=== PATIENT | male | born 1995 | race Caucasian/White ===

== ENCOUNTER 2019-04-17 15:11 | Emergency (ER) | payer BC, SELFPAY ==
[2019-04-17 15:17] VITALS: BP 140/68; PULSE 71; RESP 16; TEMP 36.6; O2SAT 99
--- NOTE | 2019-04-17 15:40 | ED.GENADUL_ITS ---
Discharge Plan Disposition Patient Disposition: HOME Condition: Good Discharge Details Chief Complaint: GenMedical Clinical Impression: Discoloration of skin Primary Care Provider: Denise Diop ED Provider: Ira Smith Home Meds and New Rx's Prescriptions: Continued epinephrine [EpiPen 2-Luis Felipe] 0.3 MG/0.3 ML auto-injector 0.3 mg IM ONCE Qty: 1 RF: 0 Discharge Instructions Additional Instructions: Wash your hands with alcohol, stain is coming off easily with alcohol swab. Wash your jeans to keep this from happening once again. If the sensation of tingling comes back or you develop other new/worsening symptoms please return to the emergency department. Otherwise, please follow-up with primary care as needed. Referrals: Denise Diop, HANDLE LATHE OPERATOR [Primary Care Provider] - Discharge Data Discharge Date/Time-TO BE ENTERED AT DEPARTURE: 04/17/19 15:45 Medical Decision Making Patient is a 24-year-old male, accompanied by significant other, with chief complaint of blue skin and tingling in his hands. On exam, patient has a stain on his hands which was easily washed off with alcohol. There is a patient relates that this did not actually cyanosis, the tingling sensation resolved. Exam is benign. He was given return precautions. All his questions and concerns were addressed. Stain seems to be from new jeans the patient is wearing. HPI General Mode of arrival: ambulatory . Date/Time Provider Initiated Documentation: 04/17/19 15:26 . Limitations to Documentation: no limitations . Information obtained by: patient and RN notes reviewed . HPI Narrative: Patient is a pleasant 24-year-old male, accompanied by significant other, with chief complaint of blue palms that began a few hours ago. Reports that these symptoms do seem to wax and wane. States that when he first noted his hands were blue, he began having some tingling in his hands. Related Data Home Medications Medication Instructions Recorded Confirmed epinephrine [EpiPen 2-Luis Felipe] 0.3 mg IM ONCE #1 pack 01/21/15 04/17/19 Allergies Allergy/AdvReac Type Severity Reaction Status Date / Time venom-honey bee Allergy Unverified 04/17/19 15:21 General Stated Complaint: GenMedical JORDY: 4 Review of Systems Constitutional Constitutional: Reports as per HPI, Denies chills and Denies fever(s) Musculoskeletal Musculoskeletal: Reports as per HPI, Denies numbness and Reports tingling Integumentary/Breasts Skin/Breast: Reports as per HPI Neurologic Neurologic: Reports as per HPI, Denies numbness, Denies sensory deficit, Reports tingling and Denies paresthesias [facility] Medical History Anxiety Depressed (Chronic) Sting of hornets, wasps, and bees causing poisoning and toxic reactions Family History (Updated 12/24/18 @ 13:56 by Chris Junior) Mother Hypertension Father No problems noted. Paternal Grandmother Breast cancer Hypertension Maternal Aunt Breast cancer Paternal Grandfather No problems noted. Maternal Grandmother Cancer Maternal Grandfather No problems noted. Sister No problems noted. Sister No problems noted. Social History Smoking/Tobacco Use Status: Never Second Hand Exposure: Yes Alcohol Intake: current Alcohol Intake frequency: a few times a month Alcohol type: beer Drug use: Never Substance use type: does not use Caregiver/Support person: No Household members: family Housing: house Communication Needs: None Do you need help understanding health information?: Rarely Pets and animals: Yes Pets and animals: cat(s), dog(s) and horse(s) Sexually active: Yes Do you think of yourself as: straight/heterosexual Current gender identity: male What is your relationship status?: never How often do you talk on the phone with friends or family?: never How often do you get together with friends or relatives?: once per week How often do you attend yazidi or buddhist services?: decline to answer Do you belong to any clubs or organized social groups?: no Panel score (0-1 are the most socially isolated patients): 0 What type of physical activity do you participate in: walking, weight lifting and running Duration: > 90 minutes/day Frequency: 5-6 times per week Yamileth/Spiritism: None Special yamileth needs: No Seatbelt use: always Helmet use: Yes Helmet use: always 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 Additional Social history: unable to assess privately Exam Const General: cooperative, healthy appearing, comfortable, no acute distress and well developed Nutritional Appearance: average body habitus and well nourished Orientation: alert and awake Resp Effort & Inspection: normal respiratory effort, able to speak in complete sentences and no respiratory distress Cardio Rate: regular rate Rhythm: regular rhythm Skin General skin exam: other (palms are both blue, not cyanotic but dorian blue, washes off with alcohol swa) Neuro General: alert and awake Cognition: normal cognition Speech: speech normal Gait: normal gait Sensory Exam: no sensory deficits noted Extrem General: abnormal to inspection (discoloration as above), full ROM, normal capillary refill and no joint enlargement Right upper extremity: normal to inspection, full ROM, normal capillary refill and no joint enlargement; no cyanosis Left upper extremity: normal to inspection, full ROM, normal capillary refill and no joint enlargement; no cyanosis Psych Appearance: grossly normal and well kempt Mental Status: mental status grossly normal Speech and Movement: speech and movement normal Course Vital Signs Vital signs: Vital Signs Temperature 36.6 C 04/17/19 15:17 Pulse 71 04/17/19 15:17 Respiratory Rate 16 04/17/19 15:17 Blood Pressure 140/68 04/17/19 15:17 Pulse Oximetry 99 04/17/19 15:17 Temperature 36.6 C 04/17/19 15:17 Temperature Source Skin 04/17/19 15:17 Pulse 71 04/17/19 15:17 Respiratory Rate 16 04/17/19 15:17 Respiratory Effort Non-Labored 04/17/19 15:28 Respiratory Depth Normal 04/17/19 15:28 Respiratory Pattern Normal 04/17/19 15:28 Blood Pressure 140/68 04/17/19 15:17 Blood Pressure Position Sitting 04/17/19 15:17 Pulse Oximetry 99 04/17/19 15:17 Oxygen Delivery Method Room Air 04/17/19 15:17 Oxygen Flow Rate 0 04/17/19 15:17 Pain Level 0 04/17/19 15:17
== END 2019-04-17 15:45 | disposition home or self-care (01) ==
LOC: ER 16:01
PROVIDERS: Emergency Provider Physician Assistant; PCP Nurse Practitioner
DX: R23.8 Other skin changes (principal)
CPT/HCPCS: 99281

== ENCOUNTER 2020-03-01 12:22 | Outpatient (REF) | payer OTHER, SELFPAY ==
[2020-03-01 14:24] LABS: Calculated LDL 152 mg/dL (<100); Cholesterol 207 mg/dL (<200); HDL Cholesterol 47 mg/dL (40-60); Triglyceride 43 mg/dL (<150)
== END 2020-03-01 12:42 ==
LOC: LBN 12:22
PROVIDERS: PCP Nurse Practitioner; Visit Provider Family Medicine
DX: Z00.00 Encounter for general adult medical examination without abnormal findings (principal)
CPT/HCPCS: 80061

== ENCOUNTER 2021-11-16 14:40 | Emergency (ER) | payer OTHER, SELFPAY ==
[2021-11-16 14:44] VITALS: BP 138/81; PULSE 86; RESP 17; TEMP 37.4; O2SAT 96
--- NOTE | 2021-11-16 14:45 | DI.RAD_ITS ---
Exam(s) XR KNEE LT 4V+ EXAM: XR KNEE LT 4V+ CLINICAL HISTORY: twist pain. TECHNIQUE: 2D digital imaging was performed. Three views. COMPARISON: No exams were available for comparison FINDINGS: BONES: No acute fracture is present. No bony destructive lesion is seen. Tiny enthesophyte at the qu adriceps insertion. JOINTS: The knee is normally aligned. No joint effusion is seen. SOFT TISSUE: Normal. IMPRESSION: Remarkable radiographs of the left knee. DATA REPOSITORY: RADIATION DOSE DELIVERED:
--- NOTE | 2021-11-16 15:08 | ED.GENADUL_ITS ---
Discharge Plan Disposition Patient Disposition: HOME Condition: Stable Discharge Details Clinical Impression: Injury of knee, left Primary Care Provider: Eliana Gonzalez ED Provider: Frank Coleman Home Meds and New Rx's Prescriptions: Continued epinephrine [EpiPen 2-Luis Felipe] 0.3 mg/0.3 mL auto-injector 0.3 mg IM ONCE Qty: 1 2RF Rx Instructions: Use as directed for bee allergy Discharge Instructions Instructions: Swollen Knee Joint (ED) Additional Instructions: X-ray of your knee is unremarkable. Lvhm-ati-noeweke Tylenol and/or Motrin as directed for discomfort. Rest, elevate, cool compresses every 2 hours for 20 minutes. Lypi-ktf-qrgnmut neoprene sleeve as tolerated. Please watch for new or worsening symptoms and return to the ER for any concerns. A work note is provided for tomorrow. If symptoms not improving over the next few days with conservative measures I recommend follow-up with either your Workmen's Comp. provider or PCP for reevaluation and potential outpatient MRI. Stand Alone Forms: Work Release Discharge Data Discharge Date/Time-TO BE ENTERED AT DEPARTURE: 11/16/21 15:37 Medical Decision Making This is a 26-year-old male who was at work this morning running after a suspect, stepped awkwardly, did not fall. Reports mild pain at the time of the injury but throughout the day he has become slightly more painful and overall stiff. He denies any other injury, numbness, tingling, weakness. Neuro, vascular, tendon intact. Knee is stable. Plan is to obtain x-ray to rule out any bony involvement and or effusion. X-ray unremarkable Discussed x-ray findings with patient. Plan is to provide work note for tomorrow. Patient plans to use an rojz-wft-tlumuub neoprene sleeve. We discussed conservative measures with elevation, cool compresses, gentle stretching, ekab-swb-ffotkox medication such as Tylenol and/or Motrin. Standard discharge and return precautions were provided. Patient understands, is agreeable to this plan, and has no additional questions or concerns upon discharge. This documentation was generated using [id number] Digitalation system, please disregard any oddities of phrase or misspellings. Medical Records Medical records reviewed: Yes I reviewed the patient's medical records. Imaging Data Radiologic Study: Attestation: I personally reviewed and interpreted this imaging study as follows: Imaging: X-Ray Radiologist's impression: Exam(s) XR KNEE LT 4V+ EXAM: XR KNEE LT 4V+ CLINICAL HISTORY: twist pain. TECHNIQUE: 2D digital imaging was performed. Three views. COMPARISON: No exams were available for comparison FINDINGS: BONES: No acute fracture is present. No bony destructive lesion is seen. Tiny enthesophyte at the quadriceps insertion. JOINTS: The knee is normally aligned. No joint effusion is seen. SOFT TISSUE: Normal. IMPRESSION: Remarkable radiographs of the left knee. HPI General Mode of arrival: ambulatory . Date/Time Provider Initiated Documentation: 11/16/21 14:46 . Limitations to Documentation: no limitations . Information obtained by: patient and family . History of Present Illness 26 year old M presents to the emergency department with the chief complaint of L knee pain, described as moderate, with intensity rated at 4. Quality is described as aching, and is localized to the left and lower extremity. Patient reports no radiation. Patient started experiencing this hour(s) (7) and it has been constant. Immobilization improves symptom(s), Movement worsens symptoms . Patient notes no other symptoms.. Patient did receive the following treatments prior to arrival, none Related Data Home Medications Medication Instructions Recorded Confirmed epinephrine 0.3 mg/0.3 mL 0.3 mg (0.3 mL) IM ONCE ##1 06/08/21 11/16/21 injection, auto-injector (EpiPen 2-Luis Felipe) Previous Rx's Medication Instructions Recorded epinephrine 0.3 mg/0.3 mL 0.3 mg (0.3 mL) IM ONCE ##1 06/08/21 injection, auto-injector (EpiPen 2-Luis Felipe) Allergies Allergy/AdvReac Type Severity Reaction Status Date / Time venom-honey bee Allergy Unverified 11/16/21 14:51 General Stated Complaint: Orthopedic JORDY: 4 Review of Systems Constitutional Constitutional: Denies weakness Musculoskeletal Musculoskeletal: Reports arthralgias, Denies numbness, Reports stiffness and D enies tingling Integumentary/Breasts Skin/Breast: Denies rash Neurologic Neurologic: Denies numbness, Denies tingling and Denies weakness PFSH All Active Problems Injury of knee, left (Acute) Anxiety (Acute 04/19/15) Gets anxiety related to events, change. Managing with exercise. 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 Paternal Grandmother Breast cancer Hypertension Maternal Aunt Breast cancer Paternal Grandfather No problems noted. Maternal Grandmother Cancer Maternal Grandfather No problems noted. Sister No problems noted. Sister No problems noted. 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 Pets and animals: Yes Pets and animals: dog(s) Sexually active: Yes Do you think of yourself as: straight/heterosexual Current gender identity: male What is your relationship status?: living with partner How often do you talk on the phone with friends or family?: once per week How often do you get together with friends or relatives?: once per week How often do you attend restorationist or moravian services?: decline to answer Do you belong to any clubs or organized social groups?: no Panel score (0-1 are the most socially isolated patients): 1 What type of physical activity do you participate in: weight lifting and running Duration: 30-45 minutes/day Frequency: daily Yamileth/Bahai: None Special yamileth needs: No Seatbelt use: always Helmet use: Yes Helmet use: always 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 Do you feel safe at home: Yes Do you feel safe in your relationship?: Yes Victim of physical abuse: No Victim of emotional abuse: No Victim of sexual abuse: No Would you like helpful sources: No Exam Const General: cooperative, healthy appearing, comfortable and no acute distress Orientation: alert and awake HENNM Head: normal to inspection, normocephalic and atraumatic Eyes Conjunctivae: conjunctivae normal Neck Neck: normal visual inspection, trachea midline and supple Resp Effort & Inspection: normal respiratory effort and able to speak in complete sentences Cardio Rate: regular rate Rhythm: regular rhythm Skin General skin exam: no rashes or lesions noted Neuro General: patient alert, patient awake, moves all extremities and no focal motor deficits Cognition: normal cognition Speech: speech normal Gait: antalgic (Minimally) Sensory Exam: no sensory deficits noted Extrem General: normal to inspection, full ROM and capillary refill normal Other: Left knee with normal visual inspection. Full range of motion. Stable, no laxity. No increased discomfort with varus or valgus stress. Slight increase of discomfort with anterior draw. Diffuse anterior mild soft tissue discomfort. Without obvious swelling, erythema, ecchymosis. Neuro, vascular, tendon intact. Psych Appearance: grossly normal Mental Status: mental status grossly normal Course Vital Signs Vital signs: Vital Signs Temperature 37.4 C 11/16/21 14:44 Pulse 86 11/16/21 14:44 Respiratory Rate 17 11/16/21 14:44 Blood Pressure 138/81 11/16/21 14:44 Pulse Oximetry 96 11/16/21 14:44 Temperature 37.4 C 11/16/21 14:44 Pulse 86 11/16/21 14:44 Respiratory Rate 17 11/16/21 14:44 Respiratory Effort Non-Labored 11/16/21 14:46 Blood Pressure 138/81 11/16/21 14:44 Blood Pressure Position Sitting 11/16/21 14:44 Pulse Oximetry 96 11/16/21 14:44 Oxygen Delivery Method Room Air 11/16/21 14:44 Oxygen Flow Rate 0 11/16/21 14:44 Pain Level 9 11/16/21 14:46 PAWSS Have you Been Recently Intoxicated or Drunk Within the Last 30 days?: No Have you Ever Experienced Previous Episodes of Alcohol Withdrawal?: No Have you ever Experienced Withdrawal Seizures?: No Have you ever Experienced Delirium Tremens(DT)s?: No Have you ever undergone Alcohol Rehabilitation Treatment (i.e, inpt ot outpatient treatment programs)?: No Have you ever Experienced Blackouts?: No Have you ever Combined Alcohol with other Downers within the last 90 days?: No Have you ever Combined Alcohol with any other Substance of Abuse during the last 90 days?: No Positive Blood Alcohol level on Presentation? [PCS.BAL]: No Evidence of Increased Autonomic Activity (i.e. HR>120, tremor, sweating, agitation, nausea)?: No Result: 0
== END 2021-11-16 15:37 | disposition home or self-care (01) ==
PROVIDERS: Emergency Provider Physician Assistant; PCP Family Medicine
DX: S89.92XA Unspecified injury of left lower leg, initial encounter (principal); Z77.22 Contact with and (suspected) exposure to environmental tobacco smoke (acute) (chronic); Y99.0 Civilian activity done for income or pay; X50.1XXA Overexertion from prolonged static or awkward postures, initial encounter; Y93.02 Activity, running
CPT/HCPCS: 99283; 73564; 99282